=== PATIENT | male | born 1955 | race Caucasian/White ===

== ENCOUNTER 2023-03-04 04:23 | Emergency (ER) | payer OTHER ==
[2023-03-04 04:34] VITALS: BP 140/87; PULSE 103; RESP 18; TEMP 99.1; BMI 40.6
[2023-03-04] MEDS ORDERED: AZITHROMYCIN 500 MG TABLET PO ONE ×2 (04:51)
[2023-03-04] MEDS ORDERED: AZITHROMYCIN 500 MG TABLET ONE (04:52)
== END 2023-03-04 05:14 | disposition home or self-care (01) ==
LOC: SUPCPDRO 04:23 → FER 04:23
DX: H92.02 Otalgia, left ear (principal); R05.9 Cough, unspecified; R07.0 Pain in throat; J40 Bronchitis, not specified as acute or chronic
CPT/HCPCS: 99283-25